=== PATIENT | female | born 1980 | race African-American/Black ===

== ENCOUNTER 2017-08-24 15:14 | Emergency (ER) | payer BC ==
[~2017-08-24] VITALS: Ht 170.2 cm; Wt 87.0 kg
[2017-08-24] MEDS ORDERED: METHOCARBAMOL 500MG TABLET PO ONE (18:15)
[2017-08-24] MEDS ORDERED: KETOROLAC 30MG/ML VIAL IM ONE (18:15)
[2017-08-24 19:35] VITALS: BP 114/61
== END 2017-08-24 19:37 | disposition home or self-care (01) ==
LOC: ER 15:56
DX: S13.4XXA Sprain of ligaments of cervical spine, initial encounter (principal); V43.52XA Car driver injured in collision with other type car in traffic accident, initial encounter; Y93.89 Activity, other specified; Y92.488 Other paved roadways as the place of occurrence of the external cause
CPT/HCPCS: 96372; 99283; J1885; Z7610